=== PATIENT | female | born 1980 | race Two or more races ===

== ENCOUNTER 2017-11-09 12:00 | Emergency (ER) | payer BC ==
[2017-11-09 12:13] VITALS: TEMP 99.4
[2017-11-09 12:22] VITALS: RESP 18; O2SAT 98
[2017-11-09] MEDS ORDERED: Sodium Chloride 0.9% 1,000 ML IV STA (12:34)
[2017-11-09 13:12] LABS: URINE BILIRUBIN NEGATIVE (NEGATIVE); URINE BLOOD MODERATE (NEGATIVE); URINE GLUCOSE (UA) NEGATIVE (NEGATIVE); URINE LEUKOCYTE ESTERASE NEGATIVE Leu/uL (NEGATIVE); URINE PROTEIN NEGATIVE mg/dL (<30 mg/dL); URINE UROBILINOGEN 0.2 E.U./dL (<1 E.U./dL)
[2017-11-09 13:13] LABS: URINE APPEARANCE CLEAR (CLEAR); URINE COLOR YELLOW (YELLOW)
--- NOTE | 2017-11-09 13:20 | ED PDOC ---
Arrival/HPI - General Chief Complaint: Back Pain Time Seen by Provider: 11/09/17 12:02 Historian: Patient - History of Present Illness Narrative History of Present Illness (Text): 11/09/17 13:11 36yr old female presents today with URI symptoms x 4 days, back pain since yesterday and dysuria and urinary frequency x 1 day. no vomiting/diarrhea. pt c/ o subjective fevers at home. pt states last week her and her friends were out and then all of her friends including herself started to get sick. pt denies chest pain or shortness of breath. denies abdominal pain. no vomiting/diarrhea. no medications taken for pain today. pt denies headache/dizziness. c/o dry cough. no other complaints. Past Medical History - Provider Review Nursing Documentation Reviewed: Yes - Travel History Have you recently traveled outside [place] w/in the past 3 mons?: No - Infectious Disease Hx of Infectious Diseases: None - Reproductive Menopause: No - Psychiatric Hx Substance Use: No - Surgical History Other/Comment: RIGHT ARM CYST 2008 - Anesthesia Hx Anesthesia: No Family/Social History - Physician Review Nursing Documentation Reviewed: Yes Family/Social History: Unknown Family HX Smoking Status: Never Smoked Hx Alcohol Use: No Frequency of alcohol use: Socially Hx Substance Use: No Allergies/Home Meds Allergies/Adverse Reactions: Allergies No Known Allergies Allergy (Verified 11/09/17 12:12) Review of Systems - Review of Systems Constitutional: Fatigue, Fevers ENT: Sinus Congestion. absent: Sore Throat Respiratory: Cough. absent: SOB Cardiovascular: absent: Chest Pain, Palpitations Gastrointestinal: absent: Abdominal Pain, Nausea, Vomiting Genitourinary Female: Dysuria, Frequency. absent: Hematuria, Vaginal Bleeding, Vaginal Discharge Musculoskeletal: Back Pain. absent: Arthralgias, Neck Pain Skin: absent: Rash, Pruritis Neurological: absent: Headache, Dizziness Psychiatric: absent: Anxiety, Depression, Suicidal Ideation Physical Exam Vital Signs Reviewed: Yes Vital Signs Temp Pulse Resp BP Pulse Ox 11/09/17 16:02 86 18 135/87 98 11/09/17 12:21 99.4 F 108 H 18 149/100 H 98 11/09/17 12:07 99.4 F 108 H 20 149/100 H 97 Temperature: Afebrile Blood Pressure: Hypertensive Pulse: Tachycardic Respiratory Rate: Normal Appearance: Positive for: Well-Appearing, Non-Toxic, Comfortable Pain Distress: None Mental Status: Positive for: Alert and Oriented X 3 - Systems Exam Head: Present: Atraumatic Extroacular Muscles: Present: EOMI Ears: Present: Normal, NORMAL TM Mouth: Present: Moist Mucous Membranes Pharnyx: Present: Normal. No: ERYTHEMA, EXUDATE, TONSILS ENLARGED Nose (Internal): Present: Engorged, Clear Mucous. No: Purulent Mucous, Septal Hematoma Neck: Present: Normal Range of Motion, Trachea Midline. No: Meningeal Signs Respiratory/Chest: Present: Clear to Auscultation, Good Air Exchange. No: Respiratory Distress, Accessory Muscle Use Cardiovascular: Present: Regular Rate and Rhythm, Normal S1, S2. No: Murmurs Abdomen: Present: Normal Bowel Sounds. No: Tenderness, Distention, Peritoneal Signs, Rebound, Guarding Back: Present: Normal Inspection, Paraspinal Tenderness (+ minimal low lumbar right sided paraspinal tenderness; no midline tenderness; no edema, no erythema ; ). No: CVA Tenderness, Midline Tenderness Upper Extremity: Present: Normal Inspection, Normal ROM Lower Extremity: Present: Normal Inspection Neurological: Present: GCS=15, Gait Normal Skin: Present: Warm, Dry, Normal Color. No: Rashes Psychiatric: Present: Alert, Oriented x 3 Medical Decision Making ED Course and Treatment: 11/09/17 13:23 36yr old female with fevers/chills, uri symptoms, urinary symptoms and back pain. cbc: wnl cmp: wnl lipase: wnl ua; + blood cxr; no infiltrate or effusion rapid flu; + pt with flank pain, blood in urine; not menstrating; will do ct/abd pelvis to r/ o stone. tamiflu given PO . ct abd/pelvis; FINDINGS: LOWER THORAX: There is a trace right pleural effusions seen. LIVER: Unremarkable. No gross lesion or ductal dilatation. GALLBLADDER AND BILE DUCTS: Unremarkable. PANCREAS: Unremarkable. No gross lesion or ductal dilatation. SPLEEN: Unremarkable. ADRENALS: Unremarkable. No mass. KIDNEYS AND URETERS: Unremarkable. No hydronephrosis. No solid mass. VASCULATURE: unremarkable. No aortic aneurysm. BOWEL: Unremarkable. No obstruction. No gross mural thickening. APPENDIX: Is no evidence of appendicitis. PERITONEUM: Unremarkable. No free fluid. No free air. LYMPH NODES: Unremarkable. No enlarged lymph nodes. BLADDER: Unremarkable. REPRODUCTIVE: Unremarkable. BONES: No acute fracture. OTHER FINDINGS: None. IMPRESSION: No evidence of acute pathology in the abdomen and pelvis. No evidence of nephrolithiasis or hydronephrosis. Trace right pleural effusion of uncertain etiology. pt reassessment; pt feeling better with medications. vitals stable. discussed results in depth with patient;advised patient of trace pleural effusion and need for f/u with pmd. advised f/u with dr. cervantes within the next 2 days. advised immediate return if symptoms worsen,persist or if new symptoms develop. Patient verbalizes understanding of discharge instructions and need for immediate followup. all aspects of this case were discussed the attending of record. impression; influenza, back pain Motrin one tablet every 6 hours as needed for pain Tamiflu: 1 capsule twice daily 5 days Increase fluids Followup with primary care physician the next 2 days Return if symptoms worsen persist or if new symptoms develop: Continued high fevers, dizziness, weakness, chest pain or shortness of breath vomiting/diarrhea , or if any other concerning symptoms develop - Lab Interpretations Lab Results: 11/09/17 12:33 11/09/17 12:33 Lab Results 11/09/17 12:55: Urine Color Yellow, Urine Appearance Clear, Urine pH 6.0, Ur Specific [place] 1.010, Urine Protein Negative, Urine Glucose (UA) Negative, Urine Ketones Negative, Urine Blood Moderate H, Urine Nitrate Negative, Urine Bilirubin Negative, Urine Urobilinogen 0.2, Ur Leukocyte Esterase Negative, Urine RBC 0 - 2, Urine WBC 0 - 2, Ur Epithelial Cells 6 - 8 11/09/17 12:33: WBC 6.6, RBC 4.83, Hgb 14.9, Hct 41.1, MCV 85.1, MCH 30.8, MCHC 36.3, RDW 13.1, Plt Count 228, MPV 11.7 H, Gran % 62.3, Lymph % (Auto) 26.7, [place] % (Auto) 9.8 H, Eos % (Auto) 0.9 L, Baso % (Auto) 0.3, Gran # 4.14, Lymph # (Auto) 1.8, [place] # (Auto) 0.7 H, Eos # (Auto) 0.1, Baso # (Auto) 0.02 11/09/17 12:33: Sodium 140, Potassium 4.1, Chloride 102, Carbon Dioxide 24, Anion Gap 17, BUN 7, Creatinine 0.8, Est GFR ( Amer) > 60, Est GFR (Non- Af Amer) > 60, Random Glucose 104, Calcium 9.4, Total Bilirubin 0.2, AST 32, ALT 27, Alkaline Phosphatase 87, Total Protein 8.2, Albumin 4.4, Globulin 3.8, Albumin/Globulin Ratio 1.1, Lipase 104 11/09/17 12:33: Influenza Typ A,B (EIA) Pos for influenza b H - RAD Interpretation Radiology Orders: 11/09/17 12:33 CHEST TWO VIEWS (PA/LAT) [RAD] Stat 11/09/17 14:29 ABD & PELVIS W/O PO OR IV CONT [CT] Stat - Medication Orders Current Medication Orders: Discontinued Medications Acetaminophen (Tylenol 325mg Tab) 975 mg PO STAT STA Stop: 11/09/17 16:12 Last Admin: 11/09/17 16:22 Dose: 975 mg MAR Pain/Vitals Document 11/09/17 16:22 CELESTINA (Rec: 11/09/17 16:23 CELESTINA [id number]) Pain Reassessment Is This A Pain ReAssessment? Yes Pain Scale Used Pain Scale Used Numeric Location Pain Location Body Boat Pilot Description Dull Intensity 4 Scale Used Numeric Sodium Chloride (Sodium Chloride 0.9%) 1,000 mls @ 999 mls/hr IV .Q1H1M STA Stop: 11/09/17 13:34 Last Admin: 11/09/17 12:45 Dose: 999 mls/hr eMAR Start Stop Document 11/09/17 12:45 CELESTINA (Rec: 11/09/17 12:54 CELESTINA [id number]) Intravenous Solution Start Date 11/09/17 Start Time 12:45 End Date 11/09/17 End time 13:45 Total Infusion Time 60 Ketorolac Tromethamine (Toradol) 30 mg IVP STAT STA Stop: 11/09/17 12:35 Last Admin: 11/09/17 12:55 Dose: 30 mg MAR Pain Assessment Document 11/09/17 12:55 CELESTINA (Rec: 11/09/17 12:55 CELESTINA [id number]) Pain Reassessment Is this a pain reassessment? Yes Presence of Pain Presence of Pain Yes Pain Scale Used Pain Scale Used Numeric Location Pain Location Body Site Generalized Description Description Constant Intensity of Pain at present 10 IVP Administration Document 11/09/17 12:55 CELESTINA (Rec: 11/09/17 12:55 CELESTINA [id number]) Charges for Administration # of IVP Administrations 1 Oseltamivir Phosphate (Tamiflu Cap) 75 mg PO STAT STA PRN Reason: Protocol Stop: 11/09/17 14:07 Last Admin: 11/09/17 14:34 Dose: 75 mg Disposition/Present on Arrival - Present on Arrival Any Indicators Present on Arrival: No History of DVT/PE: No History of Uncontrolled Diabetes: No Urinary Catheter: No History of Decub. Ulcer: No History Surgical Site Infection Following: None - Disposition Have Diagnosis and Disposition been Completed?: Yes Diagnosis: Influenza, Back pain Disposition: HOME/ ROUTINE Disposition Time: 15:53 Patient Plan: Discharge Condition: GOOD Discharge Instructions (ExitCare): Flu, Adult (DC), Low Back Pain (DC) Additional Instructions: Motrin one tablet every 6 hours as needed for pain/fever reduction Tamiflu: 1 capsule twice daily 5 days Increase fluids Followup with primary care physician the next 2 days Return if symptoms worsen persist or if new symptoms develop: Continued high fevers, dizziness, weakness, chest pain or shortness of breath vomiting/diarrhea , or if any other concerning symptoms develop Prescriptions: Ibuprofen [Motrin] 600 mg PO Q6H PRN #20 tab PRN Reason: pain/fever reduction Oseltamivir [Tamiflu] 75 mg PO BID #10 cap Referrals: Isaias Cervantes MD [Primary Care Provider] - Follow up with primary Forms: [employer] ([place]ish), WORK NOTE
[2017-11-09 13:23] LABS: BASO # 0.02 K/mm3 (0.0-2.0); BASO % 0.3 % (0.0-3.0); EOS # 0.1 (0.0-0.7); EOS % 0.9 % (1.5-5.0); GRAN # 4.14 (1.4-6.5); GRAN % 62.3 % (50.0-68.0); HEMOGLOBIN 14.9 g/dL (12.0-16.0); LYMPH # 1.8 (1.2-3.4); LYMPH % 26.7 % (22.0-35.0); MEAN CELL VOLUME 85.1 fl (80.0-105.0); MEAN CORPUSCULAR HEMOGLOBIN 30.8 pg (25.0-35.0); MEAN CORPUSCULAR HGB CONC 36.3 g/dl (31.0-37.0); MEAN PLATELET VOLUME 11.7 fl (7.0-11.0); MONO # 0.7 (0.1-0.6); MONO % 9.8 % (1.0-6.0); RBC 4.83 10^6/uL (3.5-6.1); RED CELL DISTRIBUTION WIDTH 13.1 % (11.5-14.5); WHITE BLOOD COUNT 6.6 10^3/ul (4.5-11.0)
[2017-11-09 13:28] LABS: URINE RBC 0 - 2 /hpf (0-2); URINE WBC 0 - 2 /hpf (0-6)
[2017-11-09 13:44] LABS: ALB/GLOB RATIO 1.1 (1.1-1.8); ALBUMIN 4.4 g/dL (3.0-4.8); ALT/SGPT 27 U/L (7-56); AST/SGOT 32 U/L (14-36); BLOOD UREA NITROGEN 7 mg/dL (7-21); CALCIUM 9.4 mg/dL (8.4-10.5); GFR AFRICAN-AMERICAN > 60; GFR NON-AFRICAN AMERICAN > 60; LIPASE 104 U/L (23-300)
--- NOTE | 2017-11-09 15:49 | CT ---
PROCEDURE: CT Abdomen and Pelvis without intravenous contras HISTORY: back pain COMPARISON: None. TECHNIQUE: Axial and reformatted coronal and sagittal CT images of the abdomen and pelvis were obtained without IV or oral contrast administration.. Contrast Dose: 0 Total exam DLP = 527.17 mGy-cm. This CT exam was performed using one or more of the following dose reduction techniques: Automated exposure control, adjustment of the mA and/or kV according to patient size, and/or use of iterative reconstruction technique. FINDINGS: LOWER THORAX: There is a trace right pleural effusions seen. LIVER: Unremarkable. No gross lesion or ductal dilatation. GALLBLADDER AND BILE DUCTS: Unremarkable. PANCREAS: Unremarkable. No gross lesion or ductal dilatation. SPLEEN: Unremarkable. ADRENALS: Unremarkable. No mass. KIDNEYS AND URETERS: Unremarkable. No hydronephrosis. No solid mass. VASCULATURE: Unremarkable. No aortic aneurysm. BOWEL: Unremarkable. No obstruction. No gross mural thickening. APPENDIX: Is no evidence of appendicitis. PERITONEUM: Unremarkable. No free fluid. No free air. LYMPH NODES: Unremarkable. No enlarged lymph nodes. BLADDER: Unremarkable. REPRODUCTIVE: Unremarkable. BONES: No acute fracture. OTHER FINDINGS: None. IMPRESSION: No evidence of acute pathology in the abdomen and pelvis. No evidence of nephrolithiasis or hydronephrosis. Trace right pleural effusion of uncertain etiology.
[2017-11-09 16:02] VITALS: BP 135/87; PULSE 86
--- NOTE | 2017-11-09 17:06 | RAD ---
HISTORY: cough/fever/back pain COMPARISON: No prior. TECHNIQUE: Chest PA and lateral FINDINGS: LUNGS: No active pulmonary disease. PLEURA: No significant pleural effusion identified. No pneumothorax apparent. CARDIOVASCULAR: Normal. OSSEOUS STRUCTURES: No significant abnormalities. VISUALIZED UPPER ABDOMEN: Normal. OTHER FINDINGS: None. IMPRESSION: No active disease.
== END 2017-11-09 16:23 | disposition home or self-care (01) ==
LOC: ED 12:00
DX: J11.1 Influenza due to unidentified influenza virus with other respiratory manifestations (principal); M54.9 Dorsalgia, unspecified
CPT/HCPCS: 71046; 74176; 80053; 81001; 83690; 85025; 87086; 87804; 96361; 96374; 99284; J1885; J7040